=== PATIENT | female | born 2000 | race Caucasian/White ===

== ENCOUNTER 2018-07-14 16:00 | Emergency (ER) | payer OTHER ==
--- NOTE | 2018-07-14 16:21 | Emergency Department Record ---
History of Present Illness - General Chief Complaint: Dizziness Stated Complaint: DIZZINESS Time Seen by Provider: 07/14/18 16:03 Source: Patient Mode of Arrival: Ambulatory Limitations: No limitations - History of Present Illness Initial Comments: 17 yo female presents with one week of dizziness, lightheaded, nausea, poor coordination, staggering, waxing and waning confusion and fainting. She states one year ago she began to develop dizzy spells. She has been treated with Meclizine. In the last several weeks the dizziness has been increasing. She is from [place]. She travelled to [place] about one week ago. She has been reported to be unsteady on her feet, slow with thoughts and speaking at times. She required assistance walking for 2-3 days. She has been witnessed to pass out on three occasions regaining consciousness then regains alertness under a minute. MD Complaint: Dizziness, Lightheadedness, Difficulty walking, Other (Syncope) Description: Lightheadedness History of Same: No History of Trauma: Yes Improves With: Nothing Worsens With: Nothing Associated Symptoms: Denies other symptoms - Jacquelyn Coma Scale Eye Response: (4) Open spontaneously Motor Response: (6) Obeys commands Verbal Response: (5) Oriented [place] Total: 15 - Related Data Home Medications Medication Instructions Recorded Confirmed Last Taken Albuterol Sulfate [Ventolin Hfa] 1 - 2 puff IH .EVERY 4-6 HOURS PRN 07/14/18 Unknown Meclizine HCl [Antivert] 25 mg PO ASDIR 07/14/18 07/14/18 07/14/18 Allergies Allergy/AdvReac Type Severity Reaction Status Date / Time No Known Drug Allergies Allergy Verified 07/14/18 16:21 Travel Screening - Travel/Exposure Within Last 30 Days Have you traveled within the last 30 days?: No Review of Systems Constitutional: Reports: Malaise, Weakness. Denies: Chills Eyes: Denies: Eye discharge, Eye pain, Photophobia, Vision change ENT: Denies: Congestion, Throat pain Respiratory: Denies: Cough, Dyspnea, Hemoptysis, Stridor, Wheezes Cardiovascular: Reports: Palpitations, Syncope Endocrine: Reports: Fatigue Gastrointestinal: Reports: Nausea, Vomiting. Denies: Diarrhea Genitourinary: Denies: Dysuria Musculoskeletal: Denies: Arthralgia, Back pain, Joint swelling, Myalgia Skin: Denies: Bruising, Change in color, Rash Neurological: Reports: Abnormal gait, Confusion, Tremors, Vertigo, Weakness Psychiatric: Reports: Anxiety, Depression Hematological/Lymphatic: Denies: Easy bleeding, Easy bruising Physical Exam - General General Appearance: Alert, Cooperative, No acute distress Limitations: No limitations - Head Head exam: Atraumatic, Normocephalic, Normal inspection - Eye Eye exam: Normal appearance, PERRL, EOMI. negative: Conjunctival injection, Nystagmus, Periorbital swelling - ENT ENT exam: Normal exam, Mucous membranes moist, Normal orophraynx, TM's normal bilaterally Ear exam: Normal external inspection Nasal Exam: Normal inspection Mouth exam: Normal external inspection Teeth exam: Normal inspection Throat exam: Normal inspection - Neck Neck exam: Normal inspection, Full ROM. negative: Lymphadenopathy, Tenderness - Respiratory Respiratory exam: Normal lung sounds bilaterally. negative: Accessory muscle use, Decreased breath sounds, Prolonged expiratory, Respiratory distress, Rhonchi, Stridor, Wheezes - Cardiovascular Cardiovascular Exam: Regular rate, Normal rhythm, Normal heart sounds. negative : Diastolic murmur, Systolic murmur - GI/Abdominal GI/Abdominal exam: Soft. negative: Tenderness - Rectal Rectal exam: Deferred - exam: Deferred - Extremities Extremities exam: Normal inspection. negative: Pedal edema, Tenderness - Back Back exam: Denies: CVA tenderness (R), CVA tenderness (L) - Neurological Neurological exam: Abnormal gait (staggering ataxic ambulation requires assistance), Alert, CN II-XII intact, Oriented X3, Reflexes normal (+2 bilateral patellar and quads). negative: Motor sensory deficit - Psychiatric Psychiatric exam: Flat affect. negative: Agitated, Anxious - Skin Skin exam: Dry, Intact, Normal color, Warm Course Vital Signs 07/14/18 16:16 Temperature 97.7 F Pulse Rate 91 H Respiratory 24 Rate Blood Pressure 124/68 Pulse Ox 100 - Reevaluation(s) Reevaluation #1: EKG #1: 16:21 Rate: 91 Rhythm: sinus [place]: right Intervals: normal ST segments: normal Prior: none 07/14/18 16:45 07/14/18 17:27 The labs results were reviewed There are no acute significant abnormalities of the CBC There are no acute significant abnormalities of the CMP The TSH is normal HCG is negative 07/14/18 18:26 The HCT is negative for acute process 07/14/18 18:31 The patient was ambulated She is unsteady with ataxia requiring guidance and assistance 07/14/18 18:32 07/14/18 18:55 DR Herrera accepts the patient to [facility] [place] for further testing Medical Decision Making - Lab Data Result diagrams: 07/14/18 16:25 07/14/18 16:25 Disposition Disposition: Transfer Clinical Impression: Ataxia, Dizziness Transfer To: [facility] [place] Reason For Transfer: Difficulty walking Accepting Physician: Javier Time Discussed w/Accepting Physician: 18:56 Condition: (2) Stable Forms: Patient Portal Access Time of Disposition: 18:56 Quality - Quality Measures Quality Measures: N/A - Blood Pressure Screening Does Patient Have Any of the Following: No Blood Pressure Classification: Pre-Hypertensive BP Reading Systolic Measurement: 124 Diastolic Measurement: 68 Screening for High Blood Pressure: < Pre-Hypertensive BP, F/U Documented > [ [id number]] Pre-Hypertensive Follow-up Interventions: Referral to alternative/primary care provider.
[2018-07-14 16:31] LABS: BASO % 0.4 % (0-6); GRAN % 56.5 % (47-80); HEMATOCRIT 41.8 % (35.0-47.0); HEMOGLOBIN 13.7 gm/dl (11.6-16.0); LYMPH % 31.4 % (16-45); MEAN CELL VOLUME 86.5 fl (81-97); MEAN CORPUSCULAR HEMOGLOBIN 28.4 pg (27-33); MEAN CORPUSCULAR HGB CONC 32.8 g/dl (32-36); MEAN PLATELET VOLUME 10.7 fl (7.4-10.4); MONO % 10.7 % (0-9); PLATELET COUNT 305 K/uL (130-400); RED BLOOD COUNT 4.83 M/uL (3.80-5.40)
[2018-07-14 16:45] LABS: BLOOD UREA NITROGEN 6 mg/dL (6-20); CREATININE 0.6 mg/dL (0.5-0.9); TOTAL PROTEIN 7.8 g/dL (6.6-8.7)
[2018-07-14 16:47] LABS: GLUCOSE,RANDOM 86 mg/dL (74-109)
[2018-07-14 16:50] LABS: ALB/GLOB RATIO 1.5 (1.1-1.8); ALBUMIN 4.7 g/dL (4.0-5.0); ALKALINE PHOSPHATASE 91 U/L (35-104); ALT/SGPT 16 U/L (<33); AST/SGOT 23 U/L (10.0-35.0)
[2018-07-14 17:01] LABS: THYROID STIMULATING HORMONE 2.66 uIU/mL (0.270-4.20)
[2018-07-14 18:47] LABS: URINE APPEARANCE CLOUDY; URINE BILIRUBIN NEGATIVE (NEGATIVE); URINE BLOOD NEGATIVE (NEGATIVE); URINE COLOR YELLOW; URINE GLUCOSE (UA) NEGATIVE (NEGATIVE); URINE KETONE NEGATIVE (NEGATIVE); URINE LEUKOCYTE ESTERASE MODERATE (NEGATIVE); URINE NITRITE NEGATIVE (NEGATIVE); URINE PROTEIN NEGATIVE (NEGATIVE)
[2018-07-14 18:50] LABS: AMPHETAMINE SCREEN URINE NOT DETECTED; BARBITURATE SCREEN URINE NOT DETECTED; BENZODIAZEPINE SCREEN URINE NOT DETECTED; COCAINE SCREEN URINE NOT DETECTED; METHADONE SCREEN URINE NOT DETECTED; METHAMPHETAMINE SCREEN NOT DETECTED; OPIATE SCREEN URINE NOT DETECTED; OXYCODONE SCREEN URINE NOT DETECTED; PHENCYCLIDINE SCREEN URINE NOT DETECTED; PROPOXYPHENE SCREEN URINE NOT DETECTED; THC SCREEN URINE NOT DETECTED; TRICYCLIC ANTIDEPRESSANT SCRN NOT DETECTED
[2018-07-14 18:51] LABS: HCG,QUALITATIVE URINE NEGATIVE (NEGATIVE)
[2018-07-14 18:58] LABS: URINE AMORPHOUS SEDIMENT 4+; URINE BACTERIA 1+; URINE RBC 0 - 2 (NONE SEEN); URINE WBC 0 - 2 (0-2/hpf)
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
== END 2018-07-14 20:48 | disposition short-term general hospital (02) ==
LOC: ER 16:00
DX: R26.0 Ataxic gait (principal); R42 Dizziness and giddiness; R11.0 Nausea; R55 Syncope and collapse
CPT/HCPCS: 70450; 80053; 80305; 81001; 81025; 82140; 83735; 84443; 84703; 85025; 93005; 93010; 99285